=== PATIENT | female | born 1995 | race Caucasian/White ===

== ENCOUNTER 2022-08-08 16:45 | Emergency (ER) | payer MEDICAID ==
[2022-08-08] MEDS: Sodium Chloride 0.9% 1,000 ML IV ONE ×2 (17:03→17:41)
[2022-08-08] MEDS ORDERED: Sodium Chloride 0.9% 10 ML Syringe FLUSH PRN (17:03)
[2022-08-08 17:09] LABS: BASOPHILS ABSOLUTE AUTO 0.05 10^3/uL (0.00-0.10); BASOPHILS PERCENT AUTO 0.3 % (0.0-1.0); EOSINOPHILS ABSOLUTE AUTO 0.05 10^3/uL (0.10-0.30); EOSINOPHILS PERCENT AUTO 0.3 % (1.0-3.0); HEMATOCRIT 38.2 % (37.0-47.0); HEMOGLOBIN 12.8 g/dL (12.0-16.0); IMMATURE GRAN ABSOLUTE AUTO 0.13 10^3/uL (0.00-0.50); IMMATURE GRAN PERCENT AUTO 0.7 % (0.0-5.0); LYMPHOCYTES ABSOLUTE AUTO 2.83 10^3/uL (1.00-4.00); LYMPHOCYTES PERCENT AUTO 16.3 % (20.0-40.0); MEAN CORPUSCULAR HGB CONC 33.5 g/dL (32.0-36.0); MEAN CORPUSCULAR VOLUME 86.4 fL (82.0-92.0); MEAN PLATELET VOLUME 11.5 fL (7.4-10.4); MONOCYTES ABSOLUTE AUTO 0.95 10^3/uL (0.10-0.80); MONOCYTES PERCENT AUTO 5.5 % (2.0-8.0); NEUTROPHILS PERCENT AUTO 76.9 % (50.0-70.0); PLATELET COUNT,PLT 252 10^3/uL (150-400); RED BLOOD CELL COUNT 4.42 10^6/uL (3.80-5.50); RED CELL DISTRIBUTION WIDTH 13.3 % (11.5-14.5); WHITE BLOOD CELL COUNT,WBC 17.41 10^3/uL (5.00-10.00)
[2022-08-08] MEDS: Morphine 2 MG/ML SYRINGE IVPUSH ONE (17:10)
[2022-08-08] MEDS: Ondansetron 4 MG/2 ML SDV IVPUSH ONE (17:11)
[2022-08-08] MEDS: Oxytocin 10 Units/1 ML SDV IM ONE (17:18)
[2022-08-08 17:23] LABS: BLOOD UREA NITROGEN,BUN 9 mg/dL (7-18); CALCIUM 8.8 mg/dL (8.7-10.3); CARBON DIOXIDE,CO2 22.8 mmol/L (21.0-32.0); CHLORIDE,CL 102 mmol/L (98-107); CREATININE 0.56 mg/dL (0.51-1.17); GLUCOSE RANDOM 104 mg/dL (70-140); POTASSIUM,K 3.8 mmol/L (3.5-5.1); SODIUM,NA 136 mmol/L (136-145)
[2022-08-08 17:37] LABS: ESTIMATED GFR 128 mL/min (>=60)
[2022-08-08] MEDS: Morphine 4 MG/ML Syringe IVPUSH ONE (18:32)
[2022-08-08] MEDS: ceFAZolin 1 GM Vial IVPUSH ONE (19:05)
[2022-08-08] MEDS: Morphine 2 MG/ML SYRINGE ONE (20:08)
[2022-08-08] MEDS: Water For Injection, Sterile 20 ML ONE (20:08)
[2022-08-08] MEDS: Sodium Chloride 0.9% 1,000 ML ONE (20:13)
[2022-08-08 20:46] VITALS: BP 109/76; PULSE 69
== END 2022-08-08 21:10 ==
LOC: KA.ED 16:45 → EDBD 16:45 → KA.ED 21:10
DX: O60.23X0 Term delivery with preterm labor, third trimester, not applicable or unspecified (principal)
CPT/HCPCS: 80048; 82947; 85025; 96361; 96372; 96374; 96375; 96376; 99285-25; J0690; J2270; J2405; J2590; J7030; Q3014